=== PATIENT | female | born 1970 | race Caucasian/White ===

== ENCOUNTER 2018-01-10 23:54 | Emergency (ER) | payer BC ==
[2018-01-11 00:37] LABS: #Eosinphils 0.1 thou/uL (0.0-0.7); #Lymphocytes 1.4 thou/uL (1.20-3.40); #Monocytes 0.6 thou/uL (0.11-0.59); #Neutrophils 3.2 thou/uL (1.40-6.50); %Basophils 0.9 % (0.0-1.0); %Eosinophils 2.2 % (0.0-10.0); %Lymphocytes 26.7 % (21.0-51.0); %Monocytes 10.8 % (0.0-10.0); %Neutrophils 59.4 % (42.0-75.0); Mean Corpuscular HGB CONC 33.4 g/dL (32.0-36.0); Mean Corpuscular Hemoglobin 28.9 pg (27.0-31.0); Mean Corpuscular Volume 86.5 fL (78.0-98.0); Mean Platelet Volume 7.5 fL (7.4-10.4); Platelet Count 275 thou/uL (130-400); Red Blood Cell (RBC) Count 4.16 mill/uL (4.20-5.40); White Blood Cell (WBC) Count 5.3 thou/uL (4.8-10.8)
[2018-01-11 00:49] LABS: ALT (SGPT) 9 U/L (8-55); AST (SGOT) 10 U/L (5-34); Albumin 3.6 g/dL (3.5-5.0); Alkaline Phosphatase 44 U/L (40-150); Anion Gap 12 mmol/L (10-20); BUN (Urea Nitrogen) 16 mg/dL (7.0-18.7); Bilirubin, Total 0.3 mg/dL (0.2-1.2); Calc. Creatinine Clearance 0 mL/min (70-130); Calcium 9.2 mg/dL (7.8-10.44); Carbon Dioxide 23 mmol/L (22-29); Chloride 110 mmol/L (98-107); Estimated GFR-MDRD 76; Globulin 2.4 g/dL (2.4-3.5); Glucose 106 mg/dL (70-105); Lipase 37 U/L (8-78); Potassium 3.5 mmol/L (3.5-5.1); Sodium 141 mmol/L (136-145)
[2018-01-11 00:53] LABS: CKMB 1.1 ng/mL (0-6.6); Troponin I Less than 0.010 ng/mL (< 0.028)
[2018-01-11 03:03] LABS: Bilirubin Negative (Negative); Blood, Urine Moderate (Negative); Clarity CLEAR (Clear); Glucose, Urine (Dipstick) Negative (Negative); Leukocyte Negative (Negative); Nitrite Negative (Negative); Protein, Urine (Dipstick) Negative (Neg-Trace); Specific Gravity, Urine 1.013 (1.002-1.036)
[2018-01-11 03:06] LABS: Bacteria/HPF None Seen HPF (None Seen); Hyaline Casts/LPF 0-3 HYALINE CAST LPF (0-3 Hyaline); Pathc Cast-AUWi Flag 0.43 (0-2.49); RBC/HPF 0-3 HPF (0-3); Squamous Epithelial 0-3 HPF (0-3); WBC/HPF 0-3 HPF (0-3)
--- NOTE | 2018-01-11 08:07 | CT ---
PRELIMINARY REPORT/[facility]/EMERGENCY AFTER HOURS PROCEDURE: EXAM: CT Angiography Chest With Intravenous Contrast EXAM DATE/TIME: 01/11/2018 2:32 AM CLINICAL HISTORY: 47 years old, female; Signs and symptoms; Shortness of breath; Patient HX: Shortness of breath/panic attack TECHNIQUE: Axial computed tomographic angiography images of the chest with intravenous contrast using CT angiogr aphy protocol. MIP reconstructed images were created and reviewed. COMPARISON: No relevant prior studies available. FINDINGS: Pulmonary arteries: Normal. No pulmonary emboli. Aorta: Normal. No aortic aneurysm. No aortic dissection. Lungs: No masses. No pneumonia or edema. Mild post infectious vs post inflammatory bi-apical fibrosis . Pleural space: No pneumothorax. No pleural effusion. Heart: Normal. No cardiomegaly. No pericardial effusion. Bones/joints: Unremarkable. No acute fracture. Soft tissues: Unremarkable. Lymph nodes: Unremarkable. No enlarged lymph nodes. IMPRESSION: No acute findings. Thank you for allowing us to participate in the care of your patient. Dictated and Authenticated by: Elbert Baeza MD 01/11/2018 4:11 AM Central Time ([place] & [place]) FINAL REPORT CT ANGIOGRAM OF CHEST: Date: 01/11/18 HISTORY: Pain. Panic attack. Difficulty breathing. COMPARISON: None. TECHNIQUE: CT angiogram of the chest is performed in the axial plane. Three-dimensional reformatted images are s ubmitted for interpretation. FINDINGS: This report is in agreement with the preliminary report by [facility]. No evidence of pulmonary artery embo lism to the level of the segmental arteries. POS: [facility]
--- NOTE | 2018-01-11 09:00 | RAD ---
PORTABLE CHEST: Date: 01/11/18 PROVIDED CLINICAL HISTORY: Shortness of breath. FINDINGS: Cardiac and mediastinal silhouette is within normal limits. Lungs appear clear. No pleural fluid or p neumothorax apparent. IMPRESSION: No evidence for an acute cardiopulmonary process. Please correlate with subsequently performed chest CT. POS: [facility]
[2018-01-11] MEDS ORDERED: ISOVUE-370 76%-LOCM 1 ML ONE (14:39)
== END 2018-01-11 05:33 | disposition home or self-care (01) ==
LOC: ERS 23:54
DX: R06.02 Shortness of breath (principal); T48.205A Adverse effect of unspecified drugs acting on muscles, initial encounter; K58.9 Irritable bowel syndrome, unspecified; G43.909 Migraine, unspecified, not intractable, without status migrainosus; Z79.899 Other long term (current) drug therapy
CPT/HCPCS: 36415; 71045; 71275; 80053; 81003; 81015; 82553; 83690; 84443; 84484; 85025; 85379; 93005; 94760; 96360

== ENCOUNTER 2019-05-10 12:12 | Outpatient (CLI) | payer BC, OTHER ==
--- NOTE | 2019-05-10 15:19 | RAD ---
RADIOGRAPH LUMBAR SPINE 3 VIEWS: DATE: 05/10/2019 HISTORY: 48-year-old female with ICD-10: M51.16, intervertebral disc disorder with radiculopathy. COMPARISON: None. TECHNIQUE: Three lateral views in neutral, flexion, and extension. No AP view. FINDINGS: For the purposes of this report, it will be assumed that there are five lumbar-type vertebrae. Verteb ral body heights are maintained. Moderate disc space narrowing at L5-S1. Mild disc space narrowing at other levels, most notably L2-3. During flexion, there is a mild Grade I anterolisthesis of L2 on L3, which reduces completely upon e xtension, and almost completely upon neutral positioning. IMPRESSION: 1. Slightly instable mild Grade I spondylolisthesis, which appears during flexion, at L2-3. 2. Moderate degenerative disc disease at L5-S1. JN [] POS: OFF
== END 2019-05-10 12:13 | disposition home or self-care (01) ==
LOC: RAD 12:12
PROVIDERS: ATTEND Nurse Practitioner Family
DX: M51.16 Intervertebral disc disorders with radiculopathy, lumbar region (principal); M51.17 Intervertebral disc disorders with radiculopathy, lumbosacral region; M43.16 Spondylolisthesis, lumbar region
CPT/HCPCS: 72100

== ENCOUNTER 2019-05-14 07:58 | Observation (INO) | payer BC, OTHER ==
[2019-05-14] MEDS ORDERED: Lorazepam 2 MG/ML VIAL ONE ×3 (08:38→15:07)
[2019-05-14] MEDS ORDERED: Ketorolac Tromethamine 30 MG/ML VIAL ONE (08:38)
[2019-05-14] MEDS ORDERED: Dexamethasone 10 MG/ML VIAL ONE (08:38)
[2019-05-14 09:13] LABS: #Basophils 0.1 thou/uL (0.0-0.2); #Lymphocytes 1.2 thou/uL (1.20-3.40); #Monocytes 0.8 thou/uL (0.11-0.59); #Neutrophils 9.7 thou/uL (1.40-6.50); %Basophils 0.5 % (0.0-1.0); %Eosinophils 0.4 % (0.0-10.0); %Lymphocytes 10.3 % (21.0-51.0); %Monocytes 6.6 % (0.0-10.0); %Neutrophils 82.1 % (42.0-75.0); Hemoglobin 14.6 g/dL (12.0-16.0); Mean Corpuscular HGB CONC 31.8 g/dL (32.0-36.0); Mean Corpuscular Hemoglobin 26.1 pg (27.0-31.0); Mean Corpuscular Volume 82.1 fL (78.0-98.0); Mean Platelet Volume 8.4 fL (7.4-10.4); Platelet Count 397 thou/uL (130-400); RBC Distribution Width 12.8 % (11.5-14.5); Red Blood Cell (RBC) Count 5.58 mill/uL (4.20-5.40); White Blood Cell (WBC) Count 11.8 thou/uL (4.8-10.8)
[2019-05-14] MEDS ORDERED: Fentanyl 100 MCG/2 ML VIAL ONE ×2 (09:18→11:47)
[2019-05-14 09:23] LABS: ALT (SGPT) 16 U/L (8-55); AST (SGOT) 16 U/L (5-34); Albumin 5.2 g/dL (3.5-5.0); Alkaline Phosphatase 70 U/L (40-110); Anion Gap 14 mmol/L (10-20); BUN (Urea Nitrogen) 16 mg/dL (7.0-18.7); Bilirubin, Total 0.5 mg/dL (0.2-1.2); CRP (Inflammatory) Less than 0.50 mg/dL (= or < 0.5); Calc. Creatinine Clearance 0 mL/min (70-130); Calcium 10.4 mg/dL (7.8-10.44); Carbon Dioxide 25 mmol/L (22-29); Chloride 105 mmol/L (98-107); Estimated GFR-MDRD 57; Globulin 3.8 g/dL (2.4-3.5); Glucose 89 mg/dL (70-105); Potassium 3.7 mmol/L (3.5-5.1); Sodium 140 mmol/L (136-145)
[2019-05-14] MEDS ORDERED: Morphine 4 MG/ML VIAL ONE (14:59)
--- NOTE | 2019-05-14 15:02 | MRI ---
MRI Lumbar Spine WO Con HISTORY: Low back pain COMPARISON: None. FINDINGS: The vertebral body heights and marrow signal are maintained. The conus medullaris ends at L2 level. T here is disc desiccation at multiple levels. A tiny focus of increased T2 signal is seen in the posterior aspect of the L5-S1 disc, consistent with annular tear. A similar finding is seen in the po sterolateral aspect of the far lateral left L4-5 disc. No focal disc protrusion, central canal stenosis or neural foraminal stenosis is seen. The paraspinal musculature is normal. IMPRESSION: Annular tears of L4-5 and L5-S1 discs.
--- NOTE | 2019-05-14 15:51 | PDOC.FPRHP ---
- History of Present Illness Chief Complaint: Back pain History of Present Illness: 48 yo F presents for an exacerbation of her chronic lower back pain. Pt states that she has known lumbar disc disease and has received numerous injections over the last several years. She had not had an injection since 2018 as her pain had been doing well until a recent exacerbation in her pain. Pt denies any specific trauma or injury as a cause to her pain. Pt was seen by her pain medicine doctor, Dr. Chen, yesterday who performed a steroid injection into her lumbar back. She was feeling good until the lidocaine wore off around 0100 this morning. Pt states the pain gradually worsened throughout the morning to the point she couldn't stand it prompting her to seek ED evaluation. States pain is worst with moving from standing to seated positions and alleviated most when walking or lying flat. She denies any numbness, weakness, loss of continence. She has been taking motrin, tizanidine, and tramadol for her pain recently but none today. Pt has never had surgery on her back. ED Course: Labs: unremarkable aside from elevated WBC due to steroid use. MRI: lumbar annular tears without compression or canal stenosis. She received decadron, ativan, morphine, and toradol. - Home Medications Medication Instructions Recorded Confirmed Type Erenumab-Aooe [Aimovig 140 mg SQ SEEPHYS 05/14/19 05/14/19 History Autoinjector] Ketorolac Tromethamine [Toradol] 10 mg PO BID PRN 05/14/19 05/14/19 History Linaclotide [Linzess] 145 mcg PO DAILY-AC 05/14/19 05/14/19 History Naratriptan HCl [Amerge] 2.5 mg PO ASDIR PRN 05/14/19 05/14/19 History Polyethylene Glycol 3350 [Miralax] 17 gm PO DAILY 05/14/19 05/14/19 History Zolpidem Tartrate [Zolpidem 12.5 mg PO HS 05/14/19 05/14/19 History Tartrate ER] tiZANidine HCl [Tizanidine HCl] 4 mg PO HS PRN 05/14/19 05/14/19 History traMADol HCl [Tramadol HCl] 50 mg PO Q6HR PRN 05/14/19 05/14/19 History - History PMHx: Migraines, IBS - constipation PSHx: Bilateral rotator cuff, left elbow FHx: Brother with DDD Social: Occasional alcohol use, denies any alcohol or illicit drug use - Review of Systems General: denies: fever/chills, weight/appetite/sleep changes Eyes: denies: other ENT: denies: nasal congestion, rhinorrhea Respiratory: denies: cough, shortness of breath Cardiovascular: denies: chest pain, edema Gastrointestinal: reports: constipation. denies: nausea, vomiting, diarrhea Genitourinary: denies: incontinence, dysuria Skin: denies: rashes, lesions Musculoskeletal: reports: pain (lumbar), tenderness (lumbar), stiffness (lumbar) . denies: arthritis/arthralgias Neurological: denies: numbness, weakness Psychological: denies: depression, other - Vital signs BP: 116/65, MAP: 82, Pulse: 75, Resp: 18, Temp: 98.4 (Oral), Pain: 5, O2 sat: 97 on (Room Air), Wt: 58kg - Physical Exam Constitutional: NAD, awake, alert and oriented, well developed HEENT: EOMI, no scleral icterus, grossly normal vision, grossly normal hearing, MMM Neck: supple, FROM Heart: RRR, normal S1/S2, no murmurs/rubs/gallops, pulses present, no edema Lungs: CTAB, no respiratory distress, good air movement Abdomen: soft, non-tender Musculoskeletal: normal structure, normal tone Neurological: no focal deficit, normal sensation, DTRs 2+ -Neurological: Positive straight leg raise at 20 degrees on the right, 35 on the left. Lumbar muscular spasms Skin: no rash/lesions Heme/Lymphatic: no unusual bruising or bleeding, no purpura Psychiatric: normal mood and affect, good judgment and insight, intact recent and remote memory FMR H&P: Results - Labs Result Diagrams: 05/14/19 08:53 05/14/19 08:53 Lab results: WBC 11.8 thou/uL (4.8-10.8) H 05/14/19 08:53 Hgb 14.6 g/dL (12.0-16.0) 05/14/19 08:53 Hct 45.9 % (36.0-47.0) 05/14/19 08:53 MCV 82.1 fL (78.0-98.0) 05/14/19 08:53 Plt Count 397 thou/uL (130-400) 05/14/19 08:53 Neutrophils % 82.1 % (42.0-75.0) H 05/14/19 08:53 ESR Westergren 11 mm/hr (Less than 30) 05/14/19 08:53 Sodium 140 mmol/L (136-145) 05/14/19 08:53 Potassium 3.7 mmol/L (3.5-5.1) 05/14/19 08:53 Chloride 105 mmol/L (98-107) 05/14/19 08:53 Carbon Dioxide 25 mmol/L (22-29) 05/14/19 08:53 BUN 16 mg/dL (7.0-18.7) 05/14/19 08:53 Creatinine 1.03 mg/dL (0.6-1.1) 05/14/19 08:53 Glucose 89 mg/dL (70-105) 05/14/19 08:53 Calcium 10.4 mg/dL (7.8-10.44) 05/14/19 08:53 Total Bilirubin 0.5 mg/dL (0.2-1.2) 05/14/19 08:53 AST 16 U/L (5-34) 05/14/19 08:53 ALT 16 U/L (8-55) 05/14/19 08:53 Alkaline Phosphatase 70 U/L (40-110) 05/14/19 08:53 C-Reactive Protein Less than 0.50 mg/dL (= or < 0.5) 05/14/19 08:53 Serum Total Protein 9.0 g/dL (6.0-8.3) H 05/14/19 08:53 Albumin 5.2 g/dL (3.5-5.0) H 05/14/19 08:53 - Radiology Interpretation Other Status: report reviewed by me (The vertebral body heights and marrow signal are maintained. The conus medullaris ends at L2 level. There is disc desiccation at multiple levels. A tiny focus of increased T2 signal is seen in the posterior aspect of the L5-S1 disc, consistent with annular tear. A similar finding is seen in the posterolateral aspect of the far lateral left L4-5 disc. No focal disc protrusion, central canal stenosis or neural foraminal stenosis is seen. The paraspinal musculature is normal.) Additional comment: MRI lumbar spine FMR H&P: A/P - Problem List (1) Annular disc tear Current Visit: Yes Status: Chronic Code(s): M51.9 - UNSP THORACIC, THORACOLUM AND LUMBOSACR INTVRT DISC DISORDER (2) Strain of lumbar paraspinal muscle Current Visit: Yes Status: Acute Code(s): S39.012A - STRAIN OF MUSCLE, FASCIA AND TENDON OF LOWER BACK, INIT (3) Intractable back pain Current Visit: Yes Status: Acute Code(s): M54.9 - DORSALGIA, UNSPECIFIED - Plan Intractable Lumbar Back Pain secondary to Lumbar Paraspinal Strain - Annular tears of L4-5 and L5-S1 discs - Recent lumbar injection - PRN toradol, tylenol, topical lidocaine, and heating pad - Scheduled valium - Protonix - Walking program and ambulate frequently IBS - Constipation Predominant - Continue home linzess and miralax - PRN senakot and docusate Code: Full Diet: Regular VTE: SCD Dispo: Admit to medical obs for pain control. ELOS < 48hr FMR H&P: Upper Level - Plan Date/Time: 05/14/19 1551 I, Richard Grove MD, have evaluated this patient and agree with findings/ plan as outlined by leadership intern resident. Pertinent changes/additions are listed here. Intractable Lumbar Back Pain - MRI in ED showed multiple annular tears - Chronic back injections most recently this past week - Pain control and supportive therapy - Consider pain management consultation - Encouraged early ambulation and return to daily life activities as soon as possible IBS - Avoid Narcotics per patient history - Increase bowel regimen - Supportive care as needed PCP: Dr. Chen CODE STATUS: FULL CODE Disposition: Stable, will admit for observation for further pain relief. Addendum - Attending - Attending Attestation Date/Time: 05/14/19 1722 I personally evaluated the patient and discussed the management with Dr. Chaves I agree with the History, Examination, Assessment and Plan documented above with any addition or exceptions noted below. Admitted for pain control due to severe muscle spasm to her lower back. Worsened after steroid injections yesterday. Will notify Dr. Higginbotham. Treat spasm as best we can in hospital. Limited modalities. Discussed with patient. Patient currently unable to move or ambulate. Will add heat therapy if able. Patient's job not ideal for continued low back pain and muscle spasms. Has not tried PT. Has not tried OMT. Once patient able to ambulate, ok to d/c. Mian
[2019-05-14] MEDS ORDERED: Ondansetron ODT 4 MG TAB PO PRN (17:05)
[2019-05-14] MEDS ORDERED: Bisacodyl 5 MG TAB PO PRN (17:05)
[2019-05-14] MEDS ORDERED: Senokot S 8.6-50 MG TAB PO PRN (17:05)
[2019-05-14 17:31] VITALS: BMI 18.5
[2019-05-14] MEDS: Morphine 2 MG/ML SYRINGE SLOW IVP PRN ×2 (18:56→23:17)
[2019-05-14] MEDS ORDERED: tiZANidine HCl 4 MG TAB PO PRN (19:05)
[2019-05-14] MEDS: Acetaminophen 325 MG TAB PO PRN (20:15)
[2019-05-14] MEDS: Diazepam 5 MG TAB PO SCH (20:15)
[2019-05-14] MEDS: Zolpidem Tartrate 5 MG TAB PO SCH (20:15)
[2019-05-14] MEDS: Ketorolac Tromethamine 30 MG/ML VIAL IVP PRN (20:15)
[2019-05-14] MEDS ORDERED: Lidocaine Patch Removal TOP SCH (21:00)
[2019-05-15] MEDS: Acetaminophen 325 MG TAB PO PRN (02:58)
[2019-05-15] MEDS: Ketorolac Tromethamine 30 MG/ML VIAL IVP PRN ×3 (02:59→17:29)
[2019-05-15] MEDS: Morphine 2 MG/ML SYRINGE SLOW IVP PRN ×3 (03:08→19:57)
[2019-05-15] MEDS ORDERED: diphenhydrAMINE 25 MG CAP PO PRN (04:03)
--- NOTE | 2019-05-15 06:59 | PDOC.FM ---
- Subjective Subjective: Slightly improved this morning. States ambulated in bess last night. Ambulated to bathroom. Muscle spasms and back pain improved. Still with limited mobility. States pain is 7/10. Denies fever/chills, n/v, CP, SOB. Tolerating PO well. - Objective MAR Reviewed: Yes Vital Signs & Weight: Vital Signs (12 hours) Temp Pulse Resp BP Pulse Ox 05/15/19 03:49 97.7 F 57 L 12 98/51 L 98 05/14/19 23:11 98.2 F 77 12 99/52 L 95 05/14/19 19:32 97.7 F 77 20 96/51 L 96 Weight Weight 58.513 kg I&O: 05/13/19 05/14/19 05/15/19 06:59 06:59 06:59 Intake Total 870 Balance 870 Result Diagrams: 05/14/19 08:53 05/14/19 08:53 Phys Exam - Physical Examination Constitutional: NAD (sitting upright in bed, legs crossed.) HEENT: moist MMs Respiratory: no wheezing, no rales, no rhonchi, clear to auscultation bilateral Cardiovascular: RRR, no significant murmur, no rub Gastrointestinal: soft, non-tender, no distention, positive bowel sounds limited active ROM of back Neurological: non-focal, normal sensation, moves all 4 limbs Psychiatric: normal affect, A&O x 3 Dx/Plan (1) Annular disc tear Code(s): M51.9 - UNSP THORACIC, THORACOLUM AND LUMBOSACR INTVRT DISC DISORDER Status: Chronic (2) Intractable back pain Code(s): M54.9 - DORSALGIA, UNSPECIFIED Status: Acute (3) Strain of lumbar paraspinal muscle Code(s): S39.012A - STRAIN OF MUSCLE, FASCIA AND TENDON OF LOWER BACK, INIT Status: Acute - Plan Plan: 48yo F with h/o chronic back pain/spasms presents with intractable lumbar back pain #Intractable Lumbar Back Pain secondary to Lumbar Paraspinal Strain - Annular tears of L4-5 and L5-S1 discs - Recent lumbar injection, sees pain management - PRN toradol, tylenol, topical lidocaine, and heating pad - Scheduled valium - Walking program and ambulate frequently - Improved this morning, cont pain meds, home meds, encourage ambulation, monitor IBS - Constipation Predominant - Continue home linzess and miralax - PRN senakot and docusate Code: Full Diet: Regular IVF: SL VTE: SCD PCP: Gustavo Dispo: Admitted to medical obs for pain control. Improved this AM. ELOS < 48hr Addendum - Attending - Attending Attestation Date/Time: 05/15/19 8434 I personally evaluated the patient and discussed the management with Dr. Fitzpatrick. I agree with the History, Examination, Assessment and Plan documented above with any addition or exceptions noted below. Patient here with worsening back pain associated with annular tears and recent injections by PM. Will reach out to PM today and see if they will re-eval over the weekend. Otherwise, continue pain control and rest today. No current evidence for need for urgent NSGY consultation. Consider improved back brace.
[2019-05-15] MEDS: Diazepam 5 MG TAB PO SCH ×2 (07:57→19:54)
[2019-05-15] MEDS: Lidocaine 5% Patch TD SCH (07:58)
[2019-05-15] MEDS ORDERED: Polyethylene Glycol 3350 17 GM Packet PO SCH (09:00)
[2019-05-15] MEDS ORDERED: LINZESS 145 MCG PO SCH (10:15)
[2019-05-15] MEDS: Zolpidem Tartrate 5 MG TAB PO SCH (19:54)
[2019-05-15] MEDS ORDERED: Lidocaine Patch Removal TOP SCH (21:00)
[2019-05-16 04:11] VITALS: BP 104/61; TEMP 98.4
[2019-05-16] MEDS ORDERED: LINZESS 145 MCG PO SCH (07:30)
--- NOTE | 2019-05-16 07:39 | PDOC.FM ---
- Subjective Subjective: Doing much better this AM. Ambulating. Tolerating PO intake. Pain is not 100% resolved but improved. No fever/chills, n/v, CP, SOB. Eager for discharge. - Objective MAR Reviewed: Yes Vital Signs & Weight: Vital Signs (12 hours) Temp Pulse Resp BP BP Pulse Ox 05/16/19 04:05 98.4 F 75 12 104/61 98 05/15/19 23:44 98.2 F 58 L 12 105/55 L 99 Weight Admit Weight 58.513 kg Weight 58.513 kg I&O: 05/15/19 05/16/19 05/17/19 06:59 06:59 06:59 Intake Total 870 1520 Balance 870 1520 Result Diagrams: 05/14/19 08:53 05/14/19 08:53 Phys Exam - Physical Examination Constitutional: NAD (ambulating, good spirits, eager for discharge) HEENT: moist MMs Neck: supple Respiratory: no wheezing, no rales, no rhonchi, clear to auscultation bilateral Cardiovascular: RRR, no significant murmur, no rub Gastrointestinal: soft, non-tender, no distention, positive bowel sounds normal gait and station, mild parapsinal tenderness, limited active ROM Neurological: non-focal Psychiatric: normal affect, A&O x 3 Dx/Plan (1) Annular disc tear Code(s): M51.9 - UNSP THORACIC, THORACOLUM AND LUMBOSACR INTVRT DISC DISORDER Status: Chronic (2) Intractable back pain Code(s): M54.9 - DORSALGIA, UNSPECIFIED Status: Acute (3) Strain of lumbar paraspinal muscle Code(s): S39.012A - STRAIN OF MUSCLE, FASCIA AND TENDON OF LOWER BACK, INIT Status: Acute - Plan Plan: 48yo F with h/o chronic back pain/spasms presents with intractable lumbar back pain #Intractable Lumbar Back Pain secondary to Lumbar Paraspinal Strain - Annular tears of L4-5 and L5-S1 discs - Recent lumbar injection, sees pain management - PRN toradol, tylenol, topical lidocaine, and heating pad - Scheduled valium - Walking program and ambulate frequently - Much Improve this morning, cont pain meds, home meds, encourage ambulation - Spoke with Dr. Chen's office, made aware, will f/u with pt next week - Anticipate discharge today #IBS - Constipation Predominant - Continue home linzess and miralax - PRN senakot and docusate Code: Full Diet: Regular IVF: SL VTE: SCD PCP: Gustavo Dispo: Admitted to medical obs for pain control. Improved this AM. Anticipate discharge today. Addendum - Attending - Attending Attestation Date/Time: 05/16/19 9460 I personally evaluated the patient and discussed the management with Dr. Fitzpatrick. I agree with the History, Examination, Assessment and Plan documented above with any addition or exceptions noted below. Patient improved. Case discussed with her outpatient pain mgmt team yesterday and they are comfortable with her discharge and close outpatient follow up, and we will likely proceed with discharge later today.
[2019-05-16] MEDS: Diazepam 5 MG TAB PO SCH (07:57)
[2019-05-16] MEDS: Ketorolac Tromethamine 30 MG/ML VIAL IVP PRN (08:00)
[2019-05-16] MEDS: Lidocaine 5% Patch TD SCH (08:00)
[2019-05-16] MEDS ORDERED: Polyethylene Glycol 3350 17 GM Packet PO SCH (09:00)
[2019-05-16] MEDS ORDERED: Estradiol 1 MG TAB PO SCH (21:00)
--- NOTE | 2019-05-17 01:46 | DIS ---
DATE OF ADMISSION: 05/14/2019 DATE OF DISCHARGE: 05/16/2019 RESIDENT: Kendall Fitzpatrick MD. ADMITTING ATTENDING: Ailin Mcallister MD. DISCHARGE ATTENDING: Iain Gomez MD. PROCEDURES: Lumbar spine MRI on 05/14/2019, demonstrating annular tears of L4-L5 and L5-S1 disk. PRIMARY DIAGNOSIS: Intractable lumbar back pain secondary to lumbar paraspinal strain. SECONDARY DIAGNOSIS: Irritable bowel syndrome, constipation predominant. DISCHARGE MEDICATIONS: 1. MiraLAX 17 g p.o. daily. 2. Linzess 145 mcg p.o. daily. 3. Ambien 12.5 mg p.o. at bedtime. 4. Ketorolac 10 mg p.o. b.i.d. p.r.n. 5. Naratriptan 2.5 mg p.o. as directed p.r.n. 6. Aimovig autoinjector 140 mg subcu as directed. 7. Tramadol 50 mg p.o. q.6 hours p.r.n. 8. Tizanidine 4 mg p.o. at bedtime p.r.n. 9. Estradiol 1 mg p.o. q.p.m. 10. Valium 5 mg p.o. b.i.d. p.r.n. muscle spasm. HISTORY OF PRESENT ILLNESS AND HOSPITAL COURSE: The patient is a 48-year-old female with known history of chronic back pain and muscle spasm who presented for an acute exacerbation after a chronic lower back pain after an injection the day prior to admission by her Pain Management doctor. She stated that she has had previous injections like this in the past and not had this type of pain. Denied any specific trauma or injury, but states the pain has gradually worsened throughout the day causing her to seek ED evaluation. She says the pain is worse when she goes from moving to standing to seated and alleviated when she is actually able to lie flat or walk around. She denies any numbness, weakness, loss of continence, or focal neurologic deficit. She takes Motrin, tizanidine and Tramadol at home, but did not take any on the day of admission. She has never had any surgery to her back. In the ED, initial lab work was unremarkable. MRI per above. She received Decadron, Ativan, morphine, and Toradol. She was admitted to the floor for intractable back pain secondary to back spasms. On the floor, she was continued on her home pain regimen as well as given Valium b.i.d. 5 mg for back spasm and topical heating pads and lidocaine patches. Throughout the first day of hospitalization her pain slowly began to improve and she was able to tolerate p.o. well and later on the room voided stool without any problems. Dr. Chen, her pain management doctor was contacted and the mid-level provider recommended continued management and to follow up with them first of the week upon discharge. On the second day of hospitalization, the patient was doing very well. Not quite back to 100%, but doing much improved and ready for to go home. DISCHARGE PLAN: Discharge plan was discussed with patient as well as need to follow up with the pain medicine physician. The patient was eager for discharge and all questions were answered appropriately. DISPOSITION: Stable. DISCHARGE INSTRUCTIONS: 1. Location: Home. 2. Diet as tolerated. 3. Activity as tolerated. 4. Followup: The patient to follow up with her Pain Management, Dr. Chen within 3 days of discharge. Job ID: [id number]
== END 2019-05-16 10:15 | disposition home or self-care (01) ==
LOC: ERS 07:58 → ONC 15:43
PROVIDERS: ADMIT Student in an Organized Health Care Education/Training Program; ATTEND Student in an Organized Health Care Education/Training Program
DX: S39.012A Strain of muscle, fascia and tendon of lower back, initial encounter (principal); G89.29 Other chronic pain; M51.86 Other intervertebral disc disorders, lumbar region; M51.87 Other intervertebral disc disorders, lumbosacral region; G43.909 Migraine, unspecified, not intractable, without status migrainosus; K58.1 Irritable bowel syndrome with constipation; Z79.899 Other long term (current) drug therapy
CPT/HCPCS: 72148; 80053; 85025; 85652; 86140; 96361; 96374; 96375; 96376; G0378; J1100; J1885; J2060; J2270; J3010; Q0163

== ENCOUNTER 2019-11-16 15:47 | Outpatient (CLI) | payer BC, OTHER ==
--- NOTE | 2019-11-16 16:26 | BD ---
Exam: DEXA Bone Density 11/16/19 HISTORY: Postmenopausal screening for osteoporosis. FINDINGS: Lumbar Spine: BMD (g/cm2) T-SCORE Z-SCORE L1 0.855 -1.2 -0.5 L2 1.043 0.1 0.9 L3 1.139 0.5 1.3 L4 0.980 -0.7 0.1 L1-L4 1.010 -0.3 0.5 Femoral Neck: 0.666 -1.7 -0.8 Total Femur: 0.894 -0.4 0.1 The ten year fracture risk for a major osteoporotic fracture is 14% and for hip fracture is 0.9%. Impression: Osteopenia. POS: [facility]
== END 2019-11-16 15:48 | disposition home or self-care (01) ==
LOC: BICMAMMO 15:47
DX: Z13.820 Encounter for screening for osteoporosis (principal); M51.87 Other intervertebral disc disorders, lumbosacral region; M43.10 Spondylolisthesis, site unspecified; M51.26 Other intervertebral disc displacement, lumbar region; M85.89 Other specified disorders of bone density and structure, multiple sites
CPT/HCPCS: 77080

== ENCOUNTER 2020-11-15 09:04 | Outpatient (CLI) | payer BC | END 2020-11-15 09:05 | disposition home or self-care (01) | LOC: BICRAD 09:04 | PROVIDERS: ATTEND Nurse Practitioner Family | DX: M25.552 Pain in left hip (principal) | CPT/HCPCS: 72170 ==

== ENCOUNTER 2022-03-04 14:04 | Outpatient (CLI) | payer BC | END 2022-03-04 14:05 | disposition home or self-care (01) | LOC: BICRAD 14:04 | PROVIDERS: ATTEND Specialist | DX: M47.812 Spondylosis without myelopathy or radiculopathy, cervical region (principal) | CPT/HCPCS: 72050 ==